=== PATIENT | female | born 1985 | race Caucasian/White ===

== ENCOUNTER 2019-10-31 10:14 | Emergency (ER) | payer SELFPAY ==
--- NOTE | 2019-10-31 11:39 | ED.PDOC ---
History of Present Illness - General Chief Complaint: Lower Extremity Injury Stated Complaint: rash to right lower leg Time Seen by Provider: 10/31/19 11:32 Source: patient, RN notes reviewed, Vital Signs reviewed, family - Exam Limitations: no limitations - History of Present Illness Initial Comments: Patient is a 34-year-old white female who presents with complaints of rash, itching and skin breakdown on her right lower leg on the anterior aspect. This started approximately 2 months ago and she was seen at an outside ED who prescribed her antibiotics. This helped with some of the redness but the rash and itching continued. Then she was placed on Diflucan for presumed yeast infection of the skin and this did not help either. The rash has continued to cause oozing of the skin and some breakdown. She does not believe that she has been exposed to anything that she is allergic to. The rash is itchy, throbbing and burning in nature. It is a 10 out of 10. Nothing seems to improve it and it is worse when she gets hot water on it. Patient does not have insurance so has not followed up with her PCP. Pain - Lower Extremity: severe: Right Nguyen Method of Injury: unknown Improving Factors: nothing Allergies/Adverse Reactions: Allergies NO KNOWN ALLERGY Allergy (Unverified 09/21/14 19:56) Home Medications: Ambulatory Orders Fluoxetine HCl [PROzac] 20 mg PO DAILY 10/31/19 Prednisone 50 mg PO DAILY #5 tab 10/31/19 Review of Systems - Review of Systems Constitutional: States: no symptoms reported, see HPI EENTM: States: no symptoms reported Respiratory: States: no symptoms reported Cardiology: States: no symptoms reported Gastrointestinal/Abdominal: States: no symptoms reported Genitourinary: States: no symptoms reported Musculoskeletal: States: no symptoms reported. Denies: back pain, joint pain, joint swelling, muscle pain, muscle stiffness Skin: States: see HPI, change in color, dryness, lesions, rash - Itching. Denies: lumps Neurological: States: no symptoms reported Endocrine: States: no symptoms reported Hematologic/Lymphatic: States: no symptoms reported All other Systems: Reviewed and Negative Past Medical History (General) - Patient Medical History Hx Seizures: No Hx Asthma: No Hx Cardiac Disorders: No Hx Congestive Heart Failure: No Hx Hypertension: No Hx Thyroid Disease: No Hx Diabetes: Yes - GDM Hx Gastroesophageal Reflux: No Hx Renal Disease: No Surgical History: other - Vaccination History Hx Influenza Vaccination: No - Social History Hx Tobacco Use: Yes Hx Substance Use: No - Female History Patient is a Female of Child Bearing Age (10 -59 yrs old): Yes Hx Last Menstrual Period: 12/14/13 Expected Date of Delivery:: 10/12/14 Family Medical History - Family History Mother Family History: Unknown Physical Exam - Physical Exam General Appearance: Alert, Anxious, Well Developed, Well Groomed, Well Hydrated, Well Nourished Eyes, Ears, Nose, Throat: PERRL/EOMI, normal ENT inspection, pharynx normal Neck: non-tender, full range of motion, supple, normal inspection Cardiovascular/Respiratory: regular rate, rhythm, no M/R/G, normal peripheral pulses, no JVD, normal breath sounds, no respiratory distress Gastrointestinal/Abdominal: non-tender, no organomegaly, no hernia Back: normal inspection, no CVA tenderness, no vertebral tenderness Thigh/Hip: normal inspection, non-tender, no evidence of injury Leg: normal inspection, non-tender, no evidence of injury, normal ROM Knee: normal inspection, non-tender, no evidence of injury, normal ROM Ankle: other - Right nguyen with excoriation of the skin with papular rash, no exudate, no bleeding. Foot: normal inspection, no evidence of injury, normal ROM Progress - Progress Progress: 10/31/19 11:41 Differential diagnosis: Allergic reaction, yeast/fungal rash, contact dermatitis, streptococcal rash among others. Discussed with patient the differential diagnosis as well as the probable diagnosis would never be known. Have recommended and given her the option of steroids p.o. versus cream as well as a fungal cream. Patient states that she is tried [id number] fungal creams without any improvement of the rash and would like to try a steroid pill instead. I discussed this with the and they are both in agreement that they would like to start on a course of steroids to see if this improves this. I have recommended she follow-up with her PCP. They voiced understanding and agreement with the plan of care. Thor West M.D. #[id number] Departure - Departure Clinical Impression: Rash and nonspecific skin eruption Time of Disposition: 11:43 Disposition: Discharge to Home or Self Care Condition: Good Departure Forms: ED Discharge - Pt. Copy, Patient Portal Self Enrollment Instructions: Skin Rash (DC) Referrals: Viral Bass MD [Primary Care Provider] - 1 Week Prescriptions: Prednisone 50 mg PO DAILY #5 tab Home Medications: Ambulatory Orders Fluoxetine HCl [PROzac] 20 mg PO DAILY 10/31/19 Prednisone 50 mg PO DAILY #5 tab 10/31/19
[2019-10-31 12:11] VITALS: BP 125/78; TEMP 98.2; O2SAT 97
== END 2019-10-31 12:11 | disposition home or self-care (01) ==
LOC: ER 10:14
DX: R21 Rash and other nonspecific skin eruption (principal); Z87.891 Personal history of nicotine dependence

== ENCOUNTER 2020-02-11 14:40 | Emergency (ER) | payer SELFPAY ==
[2020-02-11] MEDS ORDERED: KETOROLAC TROMETHAMINE INJ 60 MG/2 ML VIAL IM ONE (15:16)
[2020-02-11 15:26] VITALS: O2SAT 97
--- NOTE | 2020-02-11 16:00 | ED.PDOC ---
History of Present Illness - General Chief Complaint: Trauma Stated Complaint: Bilateral knee pain r/t fall Time Seen by Provider: 02/11/20 15:16 Source: patient, RN notes reviewed, Vital Signs reviewed Exam Limitations: no limitations - History of Present Illness Initial Comments: Patient is a 34-year-old white female who approximately 3 days ago tripped and fell onto her knees bilaterally. As she fell her knees fell inward and her ankle splayed outward causing some valgus strain bilaterally on the knees. Patient is complaining of pain, 6/10, burning/tearing in nature. Nonradiating. Pain worse with movement or attempting to walk. Pain better with elevation and rest. Patient denies any other symptoms. Occurred: other - 3 days ago Severity: moderate Pain Location: lower extremity - Bilateral knees Method of Injury: fall Improving Factors: immobilization Loss of Consciousness: no loss of consciousness Associated Symptoms (Fall): denies symptoms Allergies/Adverse Reactions: Allergies NO KNOWN ALLERGY Allergy (Verified 02/11/20 15:25) Home Medications: Ambulatory Orders Fluoxetine HCl [PROzac] 20 mg PO DAILY 10/31/19 Prednisone 50 mg PO DAILY #5 tab 10/31/19 Acetaminophen W/ Codeine [Tylenol W/ CODEINE #3] 1 ea PO Q6H #16 02/11/20 Review of Systems - Review of Systems Constitutional: States: no symptoms reported, see HPI EENTM: States: no symptoms reported Respiratory: States: no symptoms reported Cardiology: States: no symptoms reported Gastrointestinal/Abdominal: States: no symptoms reported Genitourinary: States: no symptoms reported Musculoskeletal: States: joint pain - Bilateral knees medially. Skin: States: other - Bruising along the anterior distal aspect of the knees bilaterally. Neurological: States: no symptoms reported Endocrine: States: no symptoms reported Hematologic/Lymphatic: States: no symptoms reported All other Systems: Reviewed and Negative Past Medical History (General) - Patient Medical History Hx Seizures: No Hx Stroke: No Hx Asthma: No Hx of COPD: No Hx Cardiac Disorders: No Hx Congestive Heart Failure: No Hx Hypertension: No Hx Thyroid Disease: No Hx Diabetes: No Hx Gastroesophageal Reflux: No Hx Renal Disease: No Hx Cancer: No Surgical History: no surgical history, other - Vaccination History Hx Tetanus, Diphtheria Vaccination: No Hx Influenza Vaccination: No Hx Pneumococcal Vaccination: No Immunizations Up to Date: No - Social History Hx Tobacco Use: Yes - 1 pack/day Hx Alcohol Use: No Hx Substance Use: No Hx Substance Use Treatment: No Hx Depression: No - Activities of Daily Living Grooming Ability: Independent Eating (Feeding) Ability: Independent Toileting Ability: Independent - Female History Patient is a Female of Child Bearing Age (10 -59 yrs old): Yes Hx Last Menstrual Period: 12/14/13 Patient : No Expected Date of Delivery:: 10/12/14 Family Medical History - Family History Mother Family History: Unknown Physical Exam - Physical Exam General Appearance: Alert, Anxious, Obvious distress, Well Developed, Well Groomed, Well Hydrated, Well Nourished Head Injury: no evidence of injury Eye Exam: bilateral normal ENT Exam: hearing grossly normal, no evidence of ENT injury, no dental injury Neck Exam: non-tender, full range of motion, normal alignment, normal inspection Cardiovascular/Respiratory: no M/R/G, normal peripheral pulses, no JVD, normal breath sounds, no respiratory distress, tachycardia Gastrointestinal/Abdominal: normal bowel sounds, non tender, soft Back Exam: normal inspection, no CVA tenderness, no vertebral tenderness Extremity Exam: pelvis stable, joint effusion - Bilateral knees, right worse than left., pain with movement - Bilateral knees, no crepitus., tenderness - Bilateral knees medially with tenderness at the tibial plateau. Neurologic: blade groover II-XII nml as tested, no motor/sensory deficits, alert, normal mood/affect, oriented x 3 Skin Exam: normal color, warm/dry, cyanosis - Ashton Coma Score Best Eye Response (Ashton): (4) open spontaneously Best Verbal Response (Ashton): (5) oriented Best Motor Response (Ashton): (6) obeys commands Progress - Progress Progress: Differential diagnosis: Tibial plateau fractures, chondral tissue knee tears, collateral ligament strain, knee contusion among others. 02/11/20 16:38 Patient with some improvement of her pain with the IM Toradol. X-rays are negative for fracture. There is minimal swelling. Physical exam leads me to believe that she is got bilateral medial collateral ligament strain/tear. Additionally she has bilateral knee contusions inferior to the patella. Plan on discharge home with a prescription for some Ultram. Patient will continue to take ibuprofen every 8 hours for pain. Additionally, patient is to use RICE. I discussed this plan of care with the patient she voices understanding and agreement. Patient will follow-up with her PCP for possible bilateral MRIs of t he knee if she does not get any improvement in the next few days. Thor West M.D. #[id number] - Results/Orders Results/Orders: PROCEDURE: XR Left Knee, 3 Views CLINICAL INDICATION: The patient is 34 years old and is Female; fall 3 days ago bilat knee pain MAIN TECHNIQUE: Three views of the left knee. COMPARISON: No relevant prior studies available. FINDINGS: BONES/JOINTS: No fracture or dislocation is identified in the LEFT knee. Tricompartmental joint spaces are maintained. There is no suprapatellar effusion. SOFT TISSUES: No radiopaque foreign body. No significant soft tissue swelling noted. IMPRESSION: No fracture or dislocation is identified in the LEFT knee. Electronically signed by: Jacob Hernandez MD 02/11/2020 4:34 PM CDT PROCEDURE: XR Right Knee, 3 Views CLINICAL INDICATION: The patient is 34 years old and is Female; fall 3 days ago with bilateral knee pain MAIN TECHNIQUE: Three views of the right knee. COMPARISON: No relevant prior studies available. FINDINGS: BONES/JOINTS: No fracture or dislocation is identified in the RIGHT knee. Tricompartmental joint spaces are maintained. There is no suprapatellar e ffusion. SOFT TISSUES: No radiopaque foreign body. No significant soft tissue swelling noted. IMPRESSION: No fracture or dislocation is identified in the RIGHT knee. Electronically signed by: Jacob Hernandez MD 02/11/2020 4:27 PM CDT Departure - Departure Clinical Impression: Sprain of medial collateral ligament of left knee, initial encounter, Sprain of medial collateral ligament of right knee, initial encounter Contusion of knee, left Qualifiers: Encounter type: initial encounter Qualified Code(s): S80.02XA - Contusion of left knee, initial encounter Contusion of knee, right Qualifiers: Encounter type: initial encounter Qualified Code(s): S80.01XA - Contusion of right knee, initial encounter Fall Qualifiers: Encounter type: initial encounter Qualified Code(s): W19.XXXA - Unspecified fall, initial encounter Time of Disposition: 16:43 Disposition: Discharge to Home or Self Care Condition: Good Departure Forms: ED Discharge - Pt. Copy, Patient Portal Self Enrollment Instructions: DI for Trauma, Knee Sprain (DC), Ligament Injuries in the Knee (DC), Contusion (DC) Diet: resume usual diet Activity: increase activity as tolerated Referrals: Viral Bass MD [Primary Care Provider] - 1-5 Days Prescriptions: Acetaminophen W/ Codeine [Tylenol W/ CODEINE #3] 1 ea PO Q6H #16 Home Medications: Ambulatory Orders Fluoxetine HCl [PROzac] 20 mg PO DAILY 10/31/19 Prednisone 50 mg PO DAILY #5 tab 10/31/19 Acetaminophen W/ Codeine [Tylenol W/ CODEINE #3] 1 ea PO Q6H #16 02/11/20
--- NOTE | 2020-02-11 16:28 | RAD ---
PROCEDURE: XR Right Knee, 3 Views CLINICAL INDICATION: The patient is 34 years old and is Female; fall 3 days ago with bilateral knee pain MAIN TECHNIQUE: Three views of the right knee. COMPARISON: No relevant prior studies available. FINDINGS: BONES/JOINTS: No fracture or dislocation is identified in the RIGHT knee. Tricompartmental joint spaces are maintained. There is no suprapatellar effusion. SOFT TISSUES: No radiopaque foreign body. No significant soft tissue swelling noted. IMPRESSION: No fracture or dislocation is identified in the RIGHT knee. Electronically signed by: Jacob Hernandez MD 02/11/2020 4:27 PM CDT
--- NOTE | 2020-02-11 16:35 | RAD ---
PROCEDURE: XR Left Knee, 3 Views CLINICAL INDICATION: The patient is 34 years old and is Female; fall 3 days ago bilat knee pain MAIN TECHNIQUE: Three views of the left knee. COMPARISON: No relevant prior studies available. FINDINGS: BONES/JOINTS: No fracture or dislocation is identified in the LEFT knee. Tricompartmental joint spaces are maintained. There is no suprapatellar effusion. SOFT TISSUES: No radiopaque foreign body. No significant soft tissue swelling noted. IMPRESSION: No fracture or dislocation is identified in the LEFT knee. Electronically signed by: Jacob Hernandez MD 02/11/2020 4:34 PM CDT
[2020-02-11 17:02] VITALS: BP 160/90; TEMP 98.5
== END 2020-02-11 16:57 | disposition home or self-care (01) ==
LOC: ER 14:40
DX: S83.412A Sprain of medial collateral ligament of left knee, initial encounter (principal); S83.411A Sprain of medial collateral ligament of right knee, initial encounter; S80.02XA Contusion of left knee, initial encounter; S80.01XA Contusion of right knee, initial encounter; F17.210 Nicotine dependence, cigarettes, uncomplicated; W01.0XXA Fall on same level from slipping, tripping and stumbling without subsequent striking against object, initial encounter; Y92.9 Unspecified place or not applicable
CPT/HCPCS: 73562; J1885